=== PATIENT | male | born 1990 | race Caucasian/White ===

== ENCOUNTER 2019-07-12 07:01 | Emergency (ER) | payer OTHER ==
[~2019-07-12] VITALS: Ht 177.8 cm; Wt 88.5 kg
[~2019-07-12 07:01] MED LIST: OXYACE5T PO; PENVK500 PO
[2019-07-12 07:52] LABS: BASOPHILS ABSOLUTE AUTO 0.05 K/mm3 (0.00-0.23); BASOPHILS PERCENT AUTO 1 % (0-2); EOSINOPHILS ABSOLUTE AUTO 0.14 K/mm3 (0.00-0.68); EOSINOPHILS PERCENT AUTO 2 % (0-6); Hematocrit 47.7 % (37.0-53.0); Hemoglobin 16.3 g/dL (13.5-17.5); IMMATURE GRAN ABSOLUTE AUTO 0.01 K/mm3 (0.00-0.10); IMMATURE GRAN PERCENT AUTO 0 % (0-1); LYMPHOCYTES ABSOLUTE AUTO 1.41 K/mm3 (0.84-5.20); LYMPHOCYTES PERCENT AUTO 19 % (21-46); MONOCYTES ABSOLUTE AUTO 0.66 K/mm3 (0.16-1.47); MONOCYTES PERCENT AUTO 9 % (4-13); Mean Corpuscular HGB 32.1 pg (26.0-34.0); Mean Corpuscular HGB Conc 34.2 g/dL (31.5-36.5); Mean Corpuscular Volume 94 fL (80-100); Mean Platelet Volume 10.4 fL (9.1-12.4); NEUTROPHILS ABSOLUTE AUTO 5.28 K/mm3 (1.96-9.15); NEUTROPHILS PERCENT AUTO 70 % (41-73); Platelet Count 242 K/mm3 (150-400); RDW Coefficient Variation 12.2 % (11.7-14.2); RDW Standard Deviation 42.2 fL (35.1-46.3); Red Blood Cell Count 5.07 M/mm3 (4.30-5.90); White Blood Cell Count 7.55 K/mm3 (4.00-11.30)
[2019-07-12 08:10] LABS: Alanine Aminotransfer (ALT/SGP 42 U/L (12-78); Albumin, Blood 3.9 g/dL (3.4-5.0); Alk Phos 84 U/L (50-136); Anion Gap 5 mmol/L (6-16); Aspartate Aminotrans (AST/SGOT 31 U/L (12-37); Bilirubin, Total 0.6 mg/dL (0.1-1.0); Blood Urea Nitrogen 18 mg/dL (8-24); Bun/Creatinine Ratio 20.7 (12.0-20.0); CO2, Blood 27 mmol/L (21-32); Chloride, Blood 108 mmol/L (98-108); Creatinine, Blood 0.87 mg/dL (0.60-1.20); Globulin, Blood 3.9 g/dL (2.2-4.0); Glomerular Filtration Rate >60 (60-); Glucose, Blood 95 mg/dL (70-99); Potassium, Blood 4.6 mmol/L (3.5-5.5); Sodium, Blood 140 mmol/L (136-145); Total Protein, Blood 7.8 g/dL (6.4-8.2)
== END 2019-07-12 09:58 | disposition home or self-care (01) ==
LOC: ER 07:01
PROVIDERS: Nurse Practitioner
DX: M25.561 Pain in right knee (principal)
CPT/HCPCS: 20605; 36415; 73562-RT; 80053; 85025; 86140; 99283-25

== ENCOUNTER 2023-03-08 16:50 | Emergency (ER) | payer OTHER ==
[~2023-03-08] VITALS: Ht 177.8 cm; Wt 88.5 kg
[2023-03-08 17:00] VITALS: BP 223/115
[2023-03-08] MEDS ORDERED: HYDR1TAB94 PO ×2 (17:35→17:36)
[2023-03-15] MEDS ORDERED: Percocet 5-3251 EACH PO (11:19)
[2023-03-15] MEDS ORDERED: ONDA4 PO (11:19)
[2023-03-15] MEDS ORDERED: AMLO5 PO (11:19)
== END 2023-03-08 18:01 | disposition home or self-care (01) ==
LOC: ER 16:50
DX: M25.561 Pain in right knee (principal); Z91.018 Allergy to other foods; Z87.891 Personal history of nicotine dependence
CPT/HCPCS: 73562-RT; 96372; 99283-25; J1885

== ENCOUNTER 2023-03-13 14:20 | Emergency (ER) | payer OTHER ==
[~2023-03-13] VITALS: Ht 177.8 cm; Wt 88.5 kg
[~2023-03-13 14:20] MED LIST changes: +HYDR1TAB94 PO
[2023-03-13 14:47] LABS: BASOPHILS ABSOLUTE AUTO 0.08 K/mm3 (0.00-0.23); BASOPHILS PERCENT AUTO 1 % (0-2); EOSINOPHILS ABSOLUTE AUTO 0.03 K/mm3 (0.00-0.68); EOSINOPHILS PERCENT AUTO 0 % (0-6); Hemoglobin 16.2 g/dL (13.5-17.5); IMMATURE GRAN ABSOLUTE AUTO 0.03 K/mm3 (0.00-0.10); IMMATURE GRAN PERCENT AUTO 0 % (0-1); LYMPHOCYTES ABSOLUTE AUTO 1.94 K/mm3 (0.84-5.20); LYMPHOCYTES PERCENT AUTO 20 % (21-46); MONOCYTES ABSOLUTE AUTO 0.86 K/mm3 (0.16-1.47); MONOCYTES PERCENT AUTO 9 % (4-13); Mean Corpuscular Volume 92 fL (80-100); Mean Platelet Volume 9.7 fL (9.1-12.4); NEUTROPHILS ABSOLUTE AUTO 6.82 K/mm3 (1.96-9.15); NEUTROPHILS PERCENT AUTO 70 % (41-73); Platelet Count 375 K/mm3 (150-400); RDW Coefficient Variation 11.6 % (11.7-14.2); RDW Standard Deviation 39.2 fL (35.1-46.3); Red Blood Cell Count 4.91 M/mm3 (4.30-5.90); White Blood Cell Count 9.76 K/mm3 (4.00-11.30)
[2023-03-13 15:05] LABS: C-REACTIVE PROTEIN, EXT RANGE 8.59 mg/dL (0.000-0.300)
[2023-03-13 15:06] LABS: Albumin, Blood 3.4 g/dL (3.4-5.0); Albumin/Globulin Ratio 0.7 (0.8-1.8); Bilirubin, Total 0.5 mg/dL (0.1-1.0); Bun/Creatinine Ratio 10.7 (12.0-20.0); Creatinine, Blood 0.75 mg/dL (0.60-1.20); Globulin, Blood 5.2 g/dL (2.2-4.0); Total Protein, Blood 8.6 g/dL (6.4-8.2)
[2023-03-13 17:08] LABS: Body Fluid Crystals NEG (NEGATIVE)
[2023-03-13 17:12] LABS: BODY FLUID RBC 3.504 M/mm3 (0-0)
[2023-03-13 17:19] LABS: WBC Count, Synovial Fluid 803 /mm3 (0-180)
[2023-03-13 19:00] VITALS: BP 181/149
[2023-03-13 19:34] LABS: Color, Synovial Fluid Red (None-P Yel); Lymphs, Synovial Fluid 29 % (0-15); Neutrophils, Synovial Fluid 71 % (0-24)
[2023-03-13 19:35] LABS: Appearance, Synovial Fluid Bloody (Clear)
[2023-03-13] MEDS ORDERED: ONDA4 PO (21:39)
[2023-03-13] MEDS ORDERED: AMLO5 PO (21:39)
[2023-03-13] MEDS ORDERED: Percocet 5-3251 EACH PO (21:39)
[2023-03-15] MEDS ORDERED: AMLO5 PO (11:19)
[2023-03-15] MEDS ORDERED: Percocet 5-3251 EACH PO (11:19)
[2023-03-15] MEDS ORDERED: ONDA4 PO (11:19)
== END 2023-03-13 21:52 | disposition home or self-care (01) ==
LOC: ER 14:20
PROVIDERS: Student in an Organized Health Care Education/Training Program
DX: M25.561 Pain in right knee (principal); M79.671 Pain in right foot; I10 Essential (primary) hypertension; Z91.018 Allergy to other foods
CPT/HCPCS: 20610; 73701; 80053; 84550; 85025; 85651; 86140; 87070; 87075; 87205; 89051; 89060; 96372-59; 99284-25; A9270; J1885; Q9967

== ENCOUNTER 2023-03-28 17:08 | Emergency (ER) | payer OTHER ==
[~2023-03-28] VITALS: Ht 177.8 cm; Wt 90.7 kg
[~2023-03-28 17:08] MED LIST changes: +AMLO5 PO; +ONDA4 PO; +Percocet 5-3251 EACH PO
[2023-03-28 17:22] VITALS: BP 196/116
[2023-03-28 18:17] LABS: BASOPHILS PERCENT AUTO 1 % (0-2); EOSINOPHILS ABSOLUTE AUTO 0.11 K/mm3 (0.00-0.68); EOSINOPHILS PERCENT AUTO 1 % (0-6); Hematocrit 45.4 % (37.0-53.0); Hemoglobin 16.1 g/dL (13.5-17.5); IMMATURE GRAN ABSOLUTE AUTO 0.04 K/mm3 (0.00-0.10); IMMATURE GRAN PERCENT AUTO 0 % (0-1); LYMPHOCYTES ABSOLUTE AUTO 1.59 K/mm3 (0.84-5.20); LYMPHOCYTES PERCENT AUTO 13 % (21-46); MONOCYTES ABSOLUTE AUTO 0.91 K/mm3 (0.16-1.47); MONOCYTES PERCENT AUTO 7 % (4-13); Mean Corpuscular HGB 32.8 pg (26.0-34.0); Mean Corpuscular HGB Conc 35.5 g/dL (31.5-36.5); Mean Corpuscular Volume 93 fL (80-100); NEUTROPHILS ABSOLUTE AUTO 9.62 K/mm3 (1.96-9.15); NEUTROPHILS PERCENT AUTO 78 % (41-73); Platelet Count 402 K/mm3 (150-400); RDW Coefficient Variation 11.7 % (11.7-14.2); RDW Standard Deviation 39.6 fL (35.1-46.3); Red Blood Cell Count 4.91 M/mm3 (4.30-5.90); White Blood Cell Count 12.37 K/mm3 (4.00-11.30)
[2023-03-28 18:34] LABS: C-REACTIVE PROTEIN, EXT RANGE 2.05 mg/dL (0.000-0.300)
[2023-03-28 18:35] LABS: Albumin, Blood 3.9 g/dL (3.4-5.0); Albumin/Globulin Ratio 0.9 (0.8-1.8); Bilirubin, Total 0.4 mg/dL (0.1-1.0); Bun/Creatinine Ratio 12.5 (12.0-20.0); Calcium, Blood 9.3 mg/dL (8.5-10.1); Creatinine, Blood 0.96 mg/dL (0.60-1.20); Globulin, Blood 4.4 g/dL (2.2-4.0); Potassium, Blood 3.9 mmol/L (3.5-5.5); Total Protein, Blood 8.3 g/dL (6.4-8.2)
== END 2023-03-28 20:10 | disposition home or self-care (01) ==
LOC: ER 17:08
PROVIDERS: Student in an Organized Health Care Education/Training Program
DX: M79.671 Pain in right foot (principal); Z91.018 Allergy to other foods; Z79.899 Other long term (current) drug therapy
CPT/HCPCS: 73630; 80053; 85025; 85651; 86140; 96374; 99283-25; J1885